=== PATIENT | male | born 1980 | race American Indian/Alaskan Native ===

== ENCOUNTER 2021-12-01 20:17 | Emergency (ER) | payer SELFPAY ==
[2021-12-02] MEDS ORDERED: DICYCLOMINE 10 MG/5 ML ORAL LIQD PO ONE (03:21)
[2021-12-02] MEDS ORDERED: LIDOCAINE VISCOUS 2% 15 ML ORAL LIQD PO ONE (03:22)
[2021-12-02] MEDS ORDERED: ALUM-MAG HYDROXIDE-SIMETHICONE 200-200-20MG/5ML ORAL LIQD 30 ML PO ONE (03:22)
--- NOTE | 2021-12-02 03:25 | Emergency Department Report ---
ED Abdominal Pain HPI - General Chief Complaint: Abdominal Pain Stated Complaint: ABDOMINAL PAIN Time Seen by Provider: 12/02/21 02:33 Source: patient Mode of arrival: Ambulatory Limitations: No Limitations - History of Present Illness Initial Comments: 41 yo black male with pmh of GERD presents to the ed for evaluation of epigastric pain and burning. He states that a few days ago, he ate some barbecue and since then he has been having burning to his epigastric area. He states that it is the same type of pain that he has when has problems with his gerd. He denies fever, n/v, dysuria, and penile discharge. He states that burning and pain is mostly improved but states that he still needs to be cleared for work with a note. MD Complaint: abdominal pain -: Gradual, days(s) (2-3) Location: epigastric Radiation: none Migration to: no migration Severity scale (0 -10): 0 Quality: burning Consistency: now resolved Associated Symptoms: denies: nausea, vomiting, diarrhea, fever, chills, dysuria, hematemesis, hematochezia, melena, hematuria, anorexia, syncope - Related Data Previous Rx's Medication Instructions Recorded Last Taken Type Famotidine [Pepcid] 20 mg PO BID #60 tablet 12/02/21 Unknown Rx Allergies Allergy/AdvReac Type Severity Reaction Status Date / Time No Known Allergies Allergy Unverified 12/01/21 20:49 ED Review of Systems ROS: Stated complaint: ABDOMINAL PAIN Other details as noted in HPI Comment: All other systems reviewed and negative Constitutional: denies: chills, fever Eyes: denies: vision change ENT: denies: congestion Respiratory: denies: shortness of breath Cardiovascular: denies: chest pain, palpitations Gastrointestinal: abdominal pain. denies: nausea, vomiting, diarrhea, hematemesis, melena, hematochezia Genitourinary: denies: urgency, dysuria Musculoskeletal: denies: back pain Skin: denies: rash, lesions Neurological: denies: headache, weakness Psychiatric: denies: anxiety Hematological/Lymphatic: denies: easy bleeding, easy bruising ED Past Medical Hx - Medications Home Medications: Home Medications Medication Instructions Recorded Confirmed Last Taken Type Famotidine [Pepcid] 20 mg PO BID #60 tablet 12/02/21 Unknown Rx ED Physical Exam - General Limitations: No Limitations General appearance: alert, in no apparent distress - Head Head exam: Present: atraumatic, normocephalic - Eye Eye exam: Present: normal appearance. Absent: conjunctival injection - Neck Neck exam: Present: normal inspection, full ROM. Absent: tenderness, meningismus, lymphadenopathy - Respiratory Respiratory exam: Present: normal lung sounds bilaterally. Absent: respiratory distress, wheezes, rales, rhonchi, stridor, chest wall tenderness - Cardiovascular Cardiovascular Exam: Present: regular rate. Absent: normal heart sounds - GI/Abdominal GI/Abdominal exam: Present: soft, normal bowel sounds. Absent: distended, tenderness, guarding, rebound, rigid - Extremities Exam Extremities exam: Present: normal inspection, full ROM, normal capillary refill. Absent: tenderness, pedal edema, joint swelling, calf tenderness - Back Exam Back exam: Present: normal inspection. Absent: CVA tenderness (R), CVA tenderness (L) - Neurological Exam Neurological exam: Present: alert, oriented X3, normal gait - Psychiatric Psychiatric exam: Present: normal affect, normal mood - Skin Skin exam: Present: warm, dry, intact, normal color ED Course Vital Signs 12/01/21 12/02/21 20:47 04:28 Temperature 98.3 F Pulse Rate 70 74 Respiratory 18 12 Rate Blood Pressure 135/98 137/96 [Right] O2 Sat by Pulse 98 100 Oximetry ED Medical Decision Making - Medical Decision Making 41 yo black male with pmh of GERD presents to the ed for evaluation of epigastric pain and burning. He states that a few days ago, he ate some barbecue and since then he has been having burning to his epigastric area. He states that it is the same type of pain that he has when has problems with his gerd. He denies fever, n/v, dysuria, and penile discharge. He states that burning and pain is mostly improved but states that he still needs to be cleared for work with a note. No gross abnormalities noted on exam. NAD noted. Patient will be given a GI cocktail then discharged home to start on Pepcid. He is advised to take medications as prescribed and follow up with pcp or GI for further evaluation and management. He verbalized understanding of and agreement with plan of care. Critical care attestation.: If time is entered above; I have spent that time in minutes in the direct care of this critically ill patient, excluding procedure time. ED Disposition Clinical Impression: Epigastric pain Disposition: 01 HOME / SELF CARE / HOMELESS Is pt being admited?: No Does the pt Need Aspirin: No Condition: Stable Instructions: Food Choices for Gastroesophageal Reflux Disease, Adult, [id number], Heartburn, [id number], Abdominal Pain, Adult, [id number] Additional Instructions: Follow-up with primary care provider or GI doctor as needed. Return to the emergency department as needed. Prescriptions: Famotidine [Pepcid] 20 mg PO BID #60 tablet Referrals: ABIMAEL MOYA MD [Primary Care Provider] - 3-5 Days JHONATAN BLANK MD [Staff Physician] - 3-5 Days Forms: Work/School Release Form(ED) Time of Disposition: 03:25
[2021-12-02 04:29] VITALS: BP 137/96
== END 2021-12-02 04:29 | disposition home or self-care (01) ==
LOC: ED 20:17
DX: R10.13 Epigastric pain (principal)
CPT/HCPCS: 99282